=== PATIENT | male | born 1985 | race Caucasian/White ===

== ENCOUNTER 2020-04-30 01:45 | Emergency (ER) | payer OTHER ==
[2020-04-30] MEDS ORDERED: Orphenadrine 100 MG Tab.ER PO STA (02:13)
--- NOTE | 2020-04-30 02:19 | EDM.PDOC ---
ED HPI GENERAL MEDICAL PROBLEM - General Chief Complaint: Back Pain or Injury Stated Complaint: UPPER BACK PAIN Time Seen by Provider: 04/30/20 01:56 Source of Information: Reports: Patient History Limitations: Reports: No Limitations - History of Present Illness INITIAL COMMENTS - FREE TEXT/NARRATIVE: Mr. Cote is a very pleasant 34-year-old gentleman who now presents to the ED with left scapular area pain. He states that his pain developed about 1 week ago, after he slept on it wrong. No injury to the area. No prior similar symptoms. The patient states that he has been taking [id number] ibuprofen and naproxen, without adequate relief. Here in the ED, the patient's initial BP is found to be mildly elevated at 144/96, otherwise, he is hemodynamically stable, afebrile, saturating 100% on room air. Other than his left scapular area pain, the patient denies having a recent fever, chills, sore throat, ear pain, nasal or sinus congestion, cough, dyspnea, chest pain, palpitations, nausea, vomiting, constipation, diarrhea, abdominal pain, urinary symptoms, recent weight gain or weight loss, recent bloody bowel movements or black bowel movements, recent joint aches, headaches, or rashes. The patient is visiting from [place]. He and his will be heading back this morning. Treatments [employer]: Reports: NSAIDS Left Upper Shoulder Pain Score (Numeric/FACES): 10 - Related Data Allergies Allergy/AdvReac Type Severity Reaction Status Date / Time No Known Allergies Allergy Verified 04/30/20 01:54 Home Meds: Home Meds Losartan [Cozaar] 50 mg PO DAILY 04/30/20 [History] Orphenadrine [Norflex] 1 tab PO Q12H PRN #14 tab.er 04/30/20 [Rx] Past Medical History Cardiovascular History: Reports: Hypertension Respiratory History: Reports: Sleep Apnea (nightly CPAP) Musculoskeletal History: Reports: Fracture (mandible) - Past Surgical History HEENT Surgical History: Reports: Oral Surgery (wisdom teeth extraction), Other (See Below) (Mandible wiring) Musculoskeletal Surgical History: Reports: Other (See Below) (Right ACL repair - open) Social & Family History - Family History Family Medical History: Noncontributory - Tobacco Use Smoking Status *Q: Never Smoker Tobacco Use Within Last Twelve Months: Smokeless Tobacco (Quit chewing 1 can/day in 2013) - Alcohol Use Alcohol Use History: Yes Alcohol Use Frequency: Socially - Recreational Drug Use Recreational Drug Use: Yes Drug Use in Last 12 Months: No Recreational Drug Type: Reports: Marijuana/Hashish (last smoked 2017) - Living Situation & Occupation Living situation: Reports: , with Spouse Occupation: Employed (consumer product advisor) ED ROS GENERAL - Review of Systems Review Of Systems: Comprehensive ROS is negative, except as noted in HPI. ED EXAM, UPPER BACK/NECK PAIN - Physical Exam Exam: See Below Exam Limited By: No Limitations General Appearance: Alert, WD/WN, No Apparent Distress Eye Exam: Bilateral Eye: EOMI, Normal Inspection Ears Exam: Normal External Exam, Hearing Grossly Normal Nose Exam: Normal Inspection Throat/Mouth Exam: Normal Inspection, Normal Lips, Normal Voice, No Airway Compromise Head Exam: Atraumatic, Normocephalic Neck Exam: Non-Tender, Full Range of Motion, Normal Alignment, Normal Inspection Cardiovascular/Respiratory: Regular Rate, Rhythm, No M/R/G, Normal Peripheral Pulses, No JVD, Normal Breath Sounds (left equal to right), No Respiratory Distress, Other (Reproducible tenderness to palpation of the left parascapular musculature. Muscle spasm palpable.) GI/Abdominal: Normal Bowel Sounds, Soft, Non-Tender, No Organomegaly, No Distention, No Abnormal Bruit, No Mass Course - Vital Signs Last Recorded V/S: Last Vital Signs Temp 36.6 C 04/30/20 01:55 Pulse 78 04/30/20 01:55 Resp 14 04/30/20 01:55 BP 144/96 H 04/30/20 01:55 Pulse Ox 100 04/30/20 01:55 - Orders/Labs/Meds Meds: Medications Discontinued Medications Generic Name Dose Route Start Last Admin Trade Name Freq PRN Reason Stop Dose Admin Orphenadrine Citrate 100 mg 04/30/20 02:13 04/30/20 02:24 Norflex PO 04/30/20 02:14 100 mg ONETIME STA Administration - Re-Assessments/Exams Free Text/Narrative Re-Assessment/Exam: 04/30/20 02:14 As above, the patient is suffering from what appears to be left parascapular muscle spasm. I will start him on Norflex and prescribe a 7-day course, although I would expect him to be significantly better after 2 days. He should take that along with [id number]-lgsfvht ibuprofen or naproxen. Departure - Departure Time of Disposition: 02:14 Disposition: Home, Self-Care 01 Condition: Good Clinical Impression: Back muscle spasm - Discharge Information *PRESCRIPTION DRUG MONITORING PROGRAM REVIEWED*: Not Applicable *COPY OF PRESCRIPTION DRUG MONITORING REPORT IN PATIENT DIYA: Not Applicable Prescriptions: Orphenadrine [Norflex] 1 tab PO Q12H PRN #14 tab.er PRN Reason: Muscle Spasm Instructions: Musculoskeletal Pain Referrals: PCP,Not In Area [Primary Care Provider] - Forms: ED Department Discharge Additional Instructions: You were seen in the emergency room for left shoulder blade area pain for the past week. Based on your history and physical examination, you are suffering from left parascapular muscle spasm. You have been started on the muscle relaxant Norflex, and a prescription for Norflex has been sent to [facility]. Take 1 tablet of Norflex every 12 hours, starting this evening, 04/30/2020, as prescribed. Norflex works well with an NSAID. Continue to take [id number]-szy-[id number] ibuprofen, 3 tablets (600 mg) up to every 8 hours, with food, OR mlkd-ucd-[id number] naproxen, 1 tablet every 12 hours, with food, as needed for discomfort. You should expect to have significant improvement within 2 days. If your symptoms persist beyond 2 days, please follow-up with your PCP once you return home. If any other problems, please do not hesitate to return to the ER. Sepsis Event Note (ED) - Evaluation Sepsis Screening Result: No Definite Risk - Focused Exam Vital Signs: Vital Signs Temp Pulse Resp BP Pulse Ox 04/30/20 01:55 36.6 C 78 14 144/96 H 100
== END 2020-04-30 02:30 | disposition home or self-care (01) ==
LOC: JD.ED 01:45
DX: M62.830 Muscle spasm of back (principal); I10 Essential (primary) hypertension; Z79.899 Other long term (current) drug therapy; Z87.891 Personal history of nicotine dependence
CPT/HCPCS: 99283; A9270